=== PATIENT | female | born 1960 | race Caucasian/White ===

== ENCOUNTER 2019-01-22 20:34 | Emergency (ER) | payer BC, MEDICAID, MEDICARE ==
--- NOTE | 2019-01-22 21:09 | ED PDOC ---
Arrival/HPI - General Historian: Patient - History of Present Illness Narrative History of Present Illness (Text): 01/22/19 21:07 58 y/o female, pmh including UTI, nkda, c/o UTI symptoms x 2 days. Pt. stated that she has suprapubic pressure, associated with burning urinary sensation and urinary frequency, no vaginal bleeding or discharge, no flank pain, no fever or chills, no night sweat, no rash, no other medical or psychological complaints. <Beka Coulter - Last Filed: 01/22/19 22:12> Past Medical History - Provider Review Nursing Documentation Reviewed: Yes - Psychiatric Hx Depression: No Hx Emotional Abuse: No Hx Physical Abuse: No Hx Substance Use: No - Suicidal Assessment Feels Threatened In Home Enviroment: No <Beka Coulter - Last Filed: 01/22/19 22:12> Family/Social History - Physician Review Nursing Documentation Reviewed: Yes Family/Social History: Unknown Family HX Hx Alcohol Use: No Hx Substance Use: No Hx Substance Use Treatment: No <Beka Coulter - Last Filed: 01/22/19 22:12> Allergies/Home Meds <Beka Coulter - Last Filed: 01/22/19 22:12> <Ramana Obando - Last Filed: 01/22/19 22:26> Allergies/Adverse Reactions: Allergies No Known Allergies Allergy (Verified 05/01/12 22:08) Review of Systems - Review of Systems Constitutional: absent: Fatigue, Fevers Eyes: absent: Vision Changes ENT: absent: Hearing Changes Respiratory: absent: SOB, Cough Cardiovascular: absent: Chest Pain Gastrointestinal: absent: Abdominal Pain, Nausea, Vomiting Genitourinary Female: Dysuria. absent: Frequency, Hematuria, Urine Output C hanges, Vaginal Bleeding, Vaginal Discharge Musculoskeletal: absent: Arthralgias, Back Pain Skin: absent: Rash, Pruritis Psychiatric: absent: Anxiety, Depression, Suicidal Ideation <Beka Coulter - Last Filed: 01/22/19 22:12> Physical Exam - Systems Exam Head: Present: Atraumatic, Normocephalic Pupils: Present: PERRL Extroacular Muscles: Present: EOMI Conjunctiva: Present: Normal Mouth: Present: Moist Mucous Membranes Neck: Present: Normal Range of Motion Respiratory/Chest: Present: Clear to Auscultation, Good Air Exchange. No: Respiratory Distress, Accessory Muscle Use Cardiovascular: Present: Regular Rate and Rhythm, Normal S1, S2. No: Murmurs Abdomen: Present: Normal Bowel Sounds. No: Tenderness, Distention, Peritoneal Signs, Rebound, Guarding, McBurney's Point Tender, Rovsing's Sign Present Back: Present: Normal Inspection. No: CVA Tenderness, Midline Tenderness, Paraspinal Tenderness, Pain with Leg Raise Upper Extremity: Present: Normal Inspection. No: Cyanosis, Edema Lower Extremity: Present: Normal Inspection. No: Edema Neurological: Present: GCS=15, CN II-XII Intact, Speech Normal Skin: Present: Warm, Dry, Normal Color. No: Rashes Psychiatric: Present: Alert, Oriented x 3, Normal Insight, Normal Concentration <Beka Coulter - Last Filed: 01/22/19 22:12> Vital Signs Temp Pulse Resp BP Pulse Ox 01/22/19 22:11 98.5 F 100 H 18 118/60 96 <Ramana Obando - Last Filed: 01/22/19 22:26> Medical Decision Making ED Course and Treatment: 01/22/19 21:08 -UA -Observe and reassess 01/22/19 22:04 -UA show +UTI, motrin/rocephine/pyridium ordered -Discharge home with macrobid, pyridium, stay hydrated, bed rest, follow up with your own pmd within 2 days, repeat the urine analysis in 2 days, return to the ER for any new or worsening signs or symptoms. <Beka Coulter - Last Filed: 01/22/19 22:12> - Lab Interpretations Lab Results: Urine Color Light yellow (YELLOW) 01/22/19 21:00 Urine Appearance Sl cloudy (CLEAR) 01/22/19 21:00 Urine pH 6.0 (4.7-8.0) 01/22/19 21:00 Ur Specific [place] 1.010 (1.005-1.035) 01/22/19 21:00 Urine Protein 100 mg/dL (<30 mg/dL) H 01/22/19 21:00 Urine Glucose (UA) Negative mg/dL (NEGATIVE) 01/22/19 21:00 Urine Ketones Trace mg/dL (NEGATIVE) H 01/22/19 21:00 Urine Blood Moderate (NEGATIVE) H 01/22/19 21:00 Urine Nitrate Positive (NEGATIVE) H 01/22/19 21:00 Urine Bilirubin Negative (NEGATIVE) 01/22/19 21:00 Urine Urobilinogen 0.2 E.U./dL (<1 E.U./dL) 01/22/19 21:00 Ur Leukocyte Esterase Large Mary Jane/uL (NEGATIVE) H 01/22/19 21:00 Urine RBC 2 - 5 /hpf (0-2) H 01/22/19 21:00 Urine WBC Tntc /hpf (0-6) H 01/22/19 21:00 Ur Epithelial Cells None /hpf (0-5) 01/22/19 21:00 Urine Bacteria Few /hpf (NONE) 01/22/19 21:00 - Medication Orders Current Medication Orders: Discontinued Medications Ceftriaxone Sodium (Rocephin) 1 gm IM STAT STA; Protocol Stop: 01/22/19 22:05 Ibuprofen (Motrin Tab) 600 mg PO STAT STA Stop: 01/22/19 22:06 Phenazopyridine HCl (Pyridium) 200 mg PO STAT STA Stop: 01/22/19 22:05 <Ramana Obando - Last Filed: 01/22/19 22:26> - PA / GEOSPATIAL DEVELOPER / Resident Statement LUIZ has reviewed & agrees with the documentation as recorded. <Beka Coulter - Last Filed: 01/22/19 22:12> - PA / GEOSPATIAL DEVELOPER / Resident Statement LUIZ has reviewed & agrees with the documentation as recorded. LUIZ has examined the patient and agrees with the treatment plan. <Ramana Obando - Last Filed: 01/22/19 22:26> Disposition/Present on Arrival - Present on Arrival Any Indicators Present on Arrival: No History of DVT/PE: No History of Uncontrolled Diabetes: No Urinary Catheter: No History of Decub. Ulcer: No - Disposition Have Diagnosis and Disposition been Completed?: Yes Disposition Time: 21:09 Patient Plan: Discharge <Beka Coulter - Last Filed: 01/22/19 22:12> <Ramana Obando - Last Filed: 01/22/19 22:26> - Disposition Diagnosis: UTI (urinary tract infection), Dysuria Disposition: HOME/ ROUTINE Patient Problems: Current Active Problems Problem Status Onset Dysuria Acute UTI (urinary tract infection) Acute Condition: GOOD Additional Instructions: Discharge home with macrobid, pyridium, stay hydrated, bed rest, follow up with your own pmd within 2 days, repeat the urine analysis in 2 days, return to the ER for any new or worsening signs or symptoms. Prescriptions: Nitrofurantoin Macrocrystals [Macrobid] 100 mg PO BID #20 cap Phenazopyridine HCl [Pyridium] 200 mg PO TID #6 tablet Referrals: PCP,NO [Primary Care Provider] - [place] up [place] [facility] [place] [facility] [place] - Follow up with primary Forms: WORK NOTE
[2019-01-22 21:22] VITALS: BMI 21.3
[2019-01-22 21:55] LABS: URINE BILIRUBIN NEGATIVE (NEGATIVE); URINE BLOOD MODERATE (NEGATIVE); URINE GLUCOSE (UA) NEGATIVE (NEGATIVE); URINE LEUKOCYTE ESTERASE LARGE Leu/uL (NEGATIVE); URINE PROTEIN 100 mg/dL (<30 mg/dL); URINE UROBILINOGEN 0.2 E.U./dL (<1 E.U./dL)
[2019-01-22 21:57] LABS: URINE APPEARANCE SL CLOUDY (CLEAR); URINE COLOR LIGHT YELLOW (YELLOW)
[2019-01-22] MEDS ORDERED: cefTRIAXone (Rocephin) 1 gm Inj IM STA (22:04)
[2019-01-22 22:09] LABS: URINE WBC TNTC /hpf (0-6)
[2019-01-22 22:10] LABS: URINE BACTERIA FEW /hpf
[2019-01-22 22:12] VITALS: BP 118/60; PULSE 100; RESP 18; TEMP 98.5; O2SAT 96
== END 2019-01-22 22:44 | disposition home or self-care (01) ==
LOC: ED 20:34
DX: N39.0 Urinary tract infection, site not specified (principal)
CPT/HCPCS: 81001; 87086; 96372; 99281; J0696